=== PATIENT | female | born 1950 | race Caucasian/White ===

== ENCOUNTER 2017-05-08 12:31 | Inpatient (IN) | payer MEDICAID ==
[~2017-05-08] VITALS: Ht 162.6 cm; Wt 54.4 kg
[~2017-05-08 12:31] MED LIST: ATEN-169 PO; ATOR10TA87 PO; CALC-451 PO; DIL100C PO; DULO-31 PO; DULO60CA45 PO; HYDR-3972 PO; PYRI50CA PO
[2017-05-08 13:06] LABS: BASOPHILS # (AUTO) 0.1 X10'3 (0-0.2); BASOPHILS % (AUTO) 1.1 % (0-1); EOSINOPHILS # (AUTO) 0.4 X10'3 (0-0.9); EOSINOPHILS % (AUTO) 6.8 % (0-6); HEMATOCRIT 41.3 % (35.0-45.0); HEMOGLOBIN 14.5 g/dl (12.0-16.0); LYMPHOCYTES # (AUTO) 1.6 X10'3 (1.1-4.8); LYMPHOCYTES % (AUTO) 29.6 % (21-51); MEAN CORPUSCULAR HGB CONC 35.2 % (33.0-36.5); MEAN CORPUSCULAR VOLUME 90.9 FL (78-98); MONOCYTES # (AUTO) 0.5 X10'3 (0-0.9); MONOCYTES % (AUTO) 8.5 % (2-12); NEUTROPHILS # (AUTO) 2.9 X10'3 (1.8-7.7); PLATELET COUNT 201 X10'3 (140-440); RED BLOOD COUNT 4.54 X10'6 (4.20-5.60); RED CELL DISTRIBUTION WIDTH 13.1 % (11.5-14.5); WHITE BLOOD COUNT 5.5 X10'3 (4.5-11.0)
[2017-05-08 13:17] LABS: PARTIAL THROMBOPLASTIN TIME 23 SECONDS (22-32)
[2017-05-08 13:24] LABS: ALANINE AMINOTRANSFERASE 30 U/L (12-78); ALBUMIN 3.7 G/DL (3.4-5.0); ALBUMIN/GLOBULIN RATIO 1.3 (1.1-1.5); ALKALINE PHOSPHATASE 111 IU/L (46-116); ANION GAP 8 (8-16); ASPARTATE AMINO TRANSFERASE 27 U/L (10-37); BILIRUBIN,TOTAL 0.3 MG/DL (0.1-1.0); BLOOD UREA NITROGEN 13 MG/DL (7-18); BUN/CREATININE RATIO 14.6 (6.6-38.0); CALCIUM 8.4 MG/DL (8.5-10.1); CHLORIDE 106 MMOL/L (99-107); CREATININE 0.89 MG/DL (0.40-0.90); GLUCOSE 137 MG/DL (70-104); POTASSIUM 4.2 MMOL/L (3.5-5.1); SODIUM 144 MMOL/L (135-145); TOTAL CARBON DIOXIDE 30.3 MMOL/L (24-32); TOTAL PROTEIN 6.6 G/DL (6.4-8.2); TROPONIN I < 0.04 NG/ML (0.0-0.05); eGFR 64 ML/MIN
[2017-05-08 13:35] LABS: PHENYTOIN (DILANTIN) 14.8 UG/ML (10.0-20.0)
[2017-05-08] MEDS ORDERED: NAPR-1166 PO (15:00)
[2017-05-08] MEDS ORDERED: OMEP40CA37 PO (15:00)
[2017-05-08] MEDS ORDERED: acetaminophen 325mg tablet PO PRN ×2 (18:05)
[2017-05-08] MEDS ORDERED: ondansetron/PF 4mg/2ml inj IV PRN (18:05)
[2017-05-08] MEDS ORDERED: mag hydrox/Alum hydrox/simeth 30ml oral suspension PO PRN (18:05)
[2017-05-08] MEDS ORDERED: magnesium hydroxide 30ml (MOM) UD suspension PO PRN (18:05)
[2017-05-08 18:52] LABS: CHOL/HDL RATIO 4.3 (0.00-4.99); CHOLESTEROL 293 MG/DL (0-200); HDL CHOLESTEROL 68 MG/DL (35-60); LDL CHOLESTEROL 192 MG/DL (50-100); TRIGLYCERIDES 138 MG/DL (20-135)
[2017-05-08] MEDS: pyridoxine 50mg tablet PO SCH (20:13)
[2017-05-08] MEDS: HYDROcodone/acetaminophen 5mg/325mg tablet PO PRN (20:24)
[2017-05-08] MEDS ORDERED: phenytoin sod ER 100mg capsule PO SCH (21:00)
[2017-05-08 22:51] VITALS: BP 181/91
[2017-05-08 22:58] VITALS: BP 163/84
[2017-05-08] MEDS: temazepam 15mg capsule PO PRN (23:02)
[2017-05-09] MEDS: HYDROcodone/acetaminophen 5mg/325mg tablet PO PRN ×2 (00:47→08:43)
[2017-05-09] MEDS: temazepam 15mg capsule PO PRN (00:47)
[2017-05-09 02:00] VITALS: BP 125/65
[2017-05-09 05:00] VITALS: BP 161/66
[2017-05-09 06:37] LABS: BASOPHILS # (AUTO) 0.1 X10'3 (0-0.2); BASOPHILS % (AUTO) 1.2 % (0-1); EOSINOPHILS # (AUTO) 0.5 X10'3 (0-0.9); EOSINOPHILS % (AUTO) 9.4 % (0-6); HEMATOCRIT 40.2 % (35.0-45.0); LYMPHOCYTES # (AUTO) 1.8 X10'3 (1.1-4.8); LYMPHOCYTES % (AUTO) 35.5 % (21-51); MEAN CORPUSCULAR HEMOGLOBIN 31.5 PG (27.0-31.0); MEAN CORPUSCULAR HGB CONC 34.8 % (33.0-36.5); MEAN CORPUSCULAR VOLUME 90.4 FL (78-98); MEAN PLATELET VOLUME 10.2 FL (7.4-10.4); MONOCYTES # (AUTO) 0.5 X10'3 (0-0.9); MONOCYTES % (AUTO) 9.7 % (2-12); NEUTROPHILS # (AUTO) 2.2 X10'3 (1.8-7.7); NEUTROPHILS % (AUTO) 44.2 % (42-75); PLATELET COUNT 173 X10'3 (140-440); RED BLOOD COUNT 4.45 X10'6 (4.20-5.60); RED CELL DISTRIBUTION WIDTH 12.9 % (11.5-14.5); WHITE BLOOD COUNT 5.1 X10'3 (4.5-11.0)
[2017-05-09 06:46] LABS: ALBUMIN 3.4 G/DL (3.4-5.0); ANION GAP 8 (8-16); BLOOD UREA NITROGEN 12 MG/DL (7-18); CALCIUM 8.5 MG/DL (8.5-10.1); CHLORIDE 108 MMOL/L (99-107); CREATININE 0.75 MG/DL (0.40-0.90); GLUCOSE 91 MG/DL (70-104); POTASSIUM 4.1 MMOL/L (3.5-5.1); SODIUM 145 MMOL/L (135-145); TOTAL CARBON DIOXIDE 28.8 MMOL/L (24-32); eGFR 78 ML/MIN
[2017-05-09] MEDS ORDERED: pantoprazole 40mg Tablet.DR PO SCH (07:30)
[2017-05-09] MEDS ORDERED: duloxetine 30mg CAPSULE.DR PO SCH ×2 (08:00→12:00)
[2017-05-09] MEDS ORDERED: aspirin 81mg tablet.DR PO SCH (08:00)
[2017-05-09] MEDS ORDERED: atenolol 50mg tablet PO SCH (08:00)
[2017-05-09] MEDS: pyridoxine 50mg tablet PO SCH (08:37)
[2017-05-09 10:00] VITALS: BP 172/92
[2017-05-09] MEDS ORDERED: ATEN-169 PO (15:56)
[2017-05-09] MEDS ORDERED: APIX5TAB3 PO (15:56)
[2017-05-09] MEDS ORDERED: ATOR20TA66 PO (15:56)
== END 2017-05-09 17:17 | disposition home or self-care (01) | DRG 45 ==
LOC: ER 12:32 → ED HOLD 18:09 → ORTHO 4S 22:20
PROVIDERS: ADMIT Hospitalist; ATTEND Internal Medicine
DX: I63.9 Cerebral infarction, unspecified (principal); R56.9 Unspecified convulsions; I48.2 Chronic atrial fibrillation; I10 Essential (primary) hypertension; E78.5 Hyperlipidemia, unspecified; M54.9 Dorsalgia, unspecified; E78.00 Pure hypercholesterolemia, unspecified; G89.29 Other chronic pain; J44.9 Chronic obstructive pulmonary disease, unspecified; Z79.82 Long term (current) use of aspirin; Z86.73 Personal history of transient ischemic attack (TIA), and cerebral infarction without residual deficits; Z98.891 History of uterine scar from previous surgery
CPT/HCPCS: 36415; 70450; 70544; 70551; 71045; 80048; 80053; 80061; 80185; 82948; 84484; 85025; 85610; 85730; 87070; 92616; 93005; 93306; 93880; 97161; 99285